=== PATIENT | male | born 1990 | race African-American/Black ===

== ENCOUNTER 2017-08-09 05:21 | Emergency (ER) | payer MEDICAID ==
[~2017-08-09] VITALS: Ht 182.9 cm; Wt 145.4 kg
[2017-08-09 06:34] VITALS: BP 141/74
== END 2017-08-09 06:40 | disposition home or self-care (01) ==
LOC: EMS 05:22
DX: J02.9 Acute pharyngitis, unspecified (principal)
CPT/HCPCS: 99283

== ENCOUNTER 2017-08-24 22:28 | Emergency (ER) | payer MEDICAID ==
[~2017-08-24] VITALS: Ht 182.9 cm; Wt 145.0 kg
[2017-08-24 23:37] VITALS: BP 144/82
== END 2017-08-24 23:56 | disposition home or self-care (01) ==
LOC: EMS 22:33
DX: J02.9 Acute pharyngitis, unspecified (principal); F12.10 Cannabis abuse, uncomplicated
CPT/HCPCS: 99281